=== PATIENT | female | born 1950 | race African-American/Black ===

== ENCOUNTER 2019-09-30 19:11 | Inpatient (IN) ==
[2019-09-30] MEDS ORDERED: PANTOPRAZOLE 40 MG VIAL IV STA (19:59)
[2019-09-30] MEDS ORDERED: SODIUM CHLORIDE 0.9% 500 ML IV STA (19:59)
[2019-09-30] MEDS ORDERED: ONDANSETRON 4 MG/2 ML VIAL IV STA (19:59)
[2019-09-30 20:14] LABS: Basophils # 0.1 10*3/uL (0.0-0.2); Basophils % 0.9 % (0.0-0.8); Eosinophils % 0.5 % (0.00-10.9); Hematocrit 39.1 VOL% (35.7-47.0); Hemoglobin 12.1 GM/DL (12.0-16.0); Immature Granulocytes % 0.2 %; Immature Granulocytes Absolute 0.02 #; Lymphocytes # 1.5 10*3/uL (1.4-4.0); Lymphocytes % 18.7 % (21.3-54.2); Mean Corpuscular HGB Conc 30.9 GM/DL (32-36); Mean Corpuscular Volume 79.1 FL (87-102); Mean Platelet Volume 10.5 FL (9.6-12.0); Monocytes % 6.7 % (1.7-12.7); Platelet Count 348 T/CUMM (130-400); Red Blood Count 4.94 MC/CUMM (3.8-5.5); Red Cell Distribution Width 15.3 % (9.3-17.3); White Blood Count 8.1 T/CUMM (4-12)
[2019-09-30 20:40] LABS: Alanine Aminotransferase 24 U/L (13-56); Albumin 3.7 G/DL (3.4-5.0); Alkaline Phosphatase 78 U/L (45-117); Amylase 95 U/L (25-115); Aspartate Amino Transferase 21 U/L (0-37); Blood Urea Nitrogen 16 MG/DL (7-18); Calcium 9.4 MG/DL (8.5-10.1); Estimated Glom Filtration Rate 64 ML/MIN; Glucose 178 MG/DL (74-106); Osmolality,Calculated 279.7 MOS/KG (273-304); Total Protein 6.7 G/DL (6.4-8.3)
[2019-09-30] MEDS ORDERED: NICOTINE 21 MG/24 HR PATCH TRANSDERM PRN (21:26)
[2019-09-30] MEDS ORDERED: MORPHINE 4 MG/1 ML VIAL IV PRN (21:26)
[2019-09-30] MEDS ORDERED: PROMETHAZINE 25 MG/1 ML VIAL IM PRN (21:26)
[2019-09-30] MEDS ORDERED: ONDANSETRON 4 MG/2 ML VIAL IV PRN (21:26)
[2019-09-30] MEDS ORDERED: DEXTROSE 10% 250 ML IV ONE (22:53)
[2019-09-30] MEDS ORDERED: DEXTROSE 10% 250 ML BAG IV PRN (22:59)
[2019-09-30] MEDS: SODIUM CHLORIDE 0.9% 1,000 ML IV SCH (23:19)
[2019-10-01 05:27] LABS: Basophils # 0.1 10*3/uL (0.0-0.2); Basophils % 0.8 % (0.0-0.8); Eosinophils # 0.1 10*3/uL (0.0-0.87); Eosinophils % 1.2 % (0.00-10.9); Hematocrit 28.4 VOL% (35.7-47.0); Hemoglobin 8.8 GM/DL (12.0-16.0); Immature Granulocytes % 0.4 %; Immature Granulocytes Absolute 0.03 #; Lymphocytes # 2.6 10*3/uL (1.4-4.0); Lymphocytes % 35.7 % (21.3-54.2); Mean Corpuscular Volume 79.3 FL (87-102); Mean Platelet Volume 10.4 FL (9.6-12.0); Monocytes % 8.7 % (1.7-12.7); Neutrophils % 53.2 % (38.7-73.9); Platelet Count 243 T/CUMM (130-400); Red Blood Count 3.58 MC/CUMM (3.8-5.5); Red Cell Distribution Width 15.2 % (9.3-17.3); White Blood Count 7.3 T/CUMM (4-12)
[2019-10-01] MEDS: PANTOPRAZOLE 40 MG VIAL IV SCH ×2 (09:28→21:25)
[2019-10-01 10:58] LABS: Apearance,Urine Slightly Hazy (Clear); Bilirubin,Urine Negative (Negative); Blood, Urine Large mg/dL (Negative); Glucose,Urine (UA) Negative (Negative); Ketones,Urine Negative (Negative); Nitrite,Urine Negative (Negative); Protein,Urine Negative; RBC,Urine 1 /HPF (0-4); Urine Color Yellow (Yellow); Urine Specific Gravity 1.011 (1.001-1.035); Urine Urobilinogen < 2.0 EU/DL (0.2-1.0); WBC,Urine 9 /HPF (0-6)
[2019-10-01 10:59] LABS: Bacteria,Urine Occasional /HPF (Few); Mucus,Urine Occasional /LPF (Occasional); Squamous Epithelial Cell,Urine Few /HPF (0-10)
[2019-10-01] MEDS ORDERED: GLUCAGON 1 MG VIAL IM PRN ×2 (14:44→14:48)
[2019-10-01] MEDS ORDERED: DEXTROSE 10% 250 ML BAG IV PRN (14:44)
[2019-10-01] MEDS ORDERED: DEXTROSE 50% 25 GM/50 ML VIAL IV PRN (14:48)
[2019-10-01] MEDS ORDERED: PANTOPRAZOLE 40 MG TABLET PO PRN (14:56)
[2019-10-01] MEDS: cefTRIAXone 1,000 MG in SYRINGE 1 EACH IV SCH (16:05)
[2019-10-01] MEDS: SODIUM CHLORIDE 0.9% 1,000 ML IV SCH ×2 (17:13→17:14)
[2019-10-01] MEDS ORDERED: INSULIN REGULAR 100 UNIT/ML SUBCUT SCH (18:00)
[2019-10-01] MEDS ORDERED: POLYETHYLENE GLYCOL POWDER 255 GM BOTTLE PO ONE (18:00)
[2019-10-01] MEDS: INSULIN REGULAR 100 UNIT/ML SUBCUT SCH (18:07)
[2019-10-01 20:57] LABS: Hematocrit 25.4 VOL% (35.7-47.0); Hemoglobin 7.7 GM/DL (12.0-16.0)
[2019-10-01] MEDS ORDERED: MAGNESIUM CITRATE 300 ML BOTTLE PO ONE (21:00)
[2019-10-02] MEDS: SODIUM CHLORIDE 0.9% 1,000 ML IV SCH ×4 (01:14→20:33)
[2019-10-02 01:43] LABS: Hematocrit 22.3 VOL% (35.7-47.0); Hemoglobin 6.7 GM/DL (12.0-16.0)
[2019-10-02] MEDS: INSULIN REGULAR 100 UNIT/ML SUBCUT SCH ×4 (02:00→18:16)
[2019-10-02 02:03] LABS: Calcium 7.7 MG/DL (8.5-10.1)
[2019-10-02 02:05] LABS: Risk Ratio 3.27; VLDL CHOLESTEROL 24.6 MG/DL
[2019-10-02] MEDS ORDERED: SODIUM CHLORIDE 0.9% 1,000 ML IV PRN (02:06)
[2019-10-02] MEDS ORDERED: LACTATED RINGERS 1,000 ML IV SCH (08:30)
[2019-10-02] MEDS: cefTRIAXone 1,000 MG in SYRINGE 1 EACH IV SCH (09:12)
[2019-10-02] MEDS: ATORVASTATIN 10 MG TABLET PO SCH (09:12)
[2019-10-02 09:35] LABS: Basophils % 0.4 % (0.0-0.8); Eosinophils # 0.1 10*3/uL (0.0-0.87); Eosinophils % 1.6 % (0.00-10.9); Hematocrit 25.1 VOL% (35.7-47.0); Hemoglobin 7.8 GM/DL (12.0-16.0); Immature Granulocytes % 0.5 %; Immature Granulocytes Absolute 0.04 #; Lymphocytes # 2.4 10*3/uL (1.4-4.0); Lymphocytes % 31.2 % (21.3-54.2); Mean Corpuscular HGB Conc 31.1 GM/DL (32-36); Mean Platelet Volume 10.2 FL (9.6-12.0); Monocytes % 7.5 % (1.7-12.7); Neutrophils % 58.8 % (38.7-73.9); Platelet Count 199 T/CUMM (130-400); Red Blood Count 3.06 MC/CUMM (3.8-5.5); Red Cell Distribution Width 15.4 % (9.3-17.3); White Blood Count 7.7 T/CUMM (4-12)
[2019-10-02] MEDS ORDERED: LIDOCAINE 2% 5 ML VIAL ONE (11:00)
[2019-10-02] MEDS ORDERED: propofoL 200 MG/20 ML VIAL IV ONE (11:00)
[2019-10-02 14:34] LABS: Hematocrit 25.6 VOL% (35.7-47.0); Hemoglobin 8.2 GM/DL (12.0-16.0)
[2019-10-02] MEDS: PANTOPRAZOLE 40 MG TABLET PO SCH (16:58)
[2019-10-02 20:20] LABS: Hematocrit 24.9 VOL% (35.7-47.0)
[2019-10-02] MEDS: hydrALAZINE 25 MG TABLET PO SCH (20:33)
[2019-10-03] MEDS: INSULIN REGULAR 100 UNIT/ML SUBCUT SCH ×4 (00:39→19:03)
[2019-10-03] MEDS: SODIUM CHLORIDE 0.9% 1,000 ML IV SCH ×2 (05:13→16:16)
[2019-10-03 05:56] LABS: Basophils % 0.5 % (0.0-0.8); Eosinophils # 0.2 10*3/uL (0.0-0.87); Eosinophils % 2.6 % (0.00-10.9); Hemoglobin 7.7 GM/DL (12.0-16.0); Immature Granulocytes % 0.5 %; Immature Granulocytes Absolute 0.04 #; Lymphocytes # 2.6 10*3/uL (1.4-4.0); Lymphocytes % 31.2 % (21.3-54.2); Mean Corpuscular HGB Conc 32.1 GM/DL (32-36); Mean Corpuscular Volume 81.1 FL (87-102); Mean Platelet Volume 10.3 FL (9.6-12.0); Monocytes % 7.9 % (1.7-12.7); Neutrophils % 57.3 % (38.7-73.9); Platelet Count 186 T/CUMM (130-400); Red Blood Count 2.96 MC/CUMM (3.8-5.5); Red Cell Distribution Width 15.8 % (9.3-17.3); White Blood Count 8.2 T/CUMM (4-12)
[2019-10-03 06:13] LABS: Calcium 8.2 MG/DL (8.5-10.1)
[2019-10-03] MEDS ORDERED: FUROSEMIDE 20 MG/2 ML VIAL IV PRN (06:51)
[2019-10-03] MEDS ORDERED: SODIUM CHLORIDE 0.9% 1,000 ML IV PRN (06:51)
[2019-10-03 10:04] LABS: Hematocrit 25.4 VOL% (35.7-47.0); Hemoglobin 8.1 GM/DL (12.0-16.0)
[2019-10-03] MEDS: cefTRIAXone 1,000 MG in SYRINGE 1 EACH IV SCH (10:35)
[2019-10-03] MEDS: ATORVASTATIN 10 MG TABLET PO SCH (10:36)
[2019-10-03] MEDS: hydrALAZINE 25 MG TABLET PO SCH ×2 (10:36→21:20)
[2019-10-03] MEDS: POLYETHYLENE GLYCOL POWDER 17 GM PACK PO SCH ×3 (10:36→21:20)
[2019-10-03] MEDS: PANTOPRAZOLE 40 MG TABLET PO SCH (16:15)
[2019-10-04] MEDS: SODIUM CHLORIDE 0.9% 1,000 ML IV SCH ×2 (00:20→09:20)
[2019-10-04] MEDS: INSULIN REGULAR 100 UNIT/ML SUBCUT SCH ×2 (00:45→06:15)
[2019-10-04 05:44] LABS: Basophils # 0.1 10*3/uL (0.0-0.2); Basophils % 0.9 % (0.0-0.8); Eosinophils # 0.4 10*3/uL (0.0-0.87); Eosinophils % 4.2 % (0.00-10.9); Hematocrit 32.9 VOL% (35.7-47.0); Hemoglobin 10.8 GM/DL (12.0-16.0); Immature Granulocytes % 0.6 %; Immature Granulocytes Absolute 0.05 #; Lymphocytes # 2.3 10*3/uL (1.4-4.0); Lymphocytes % 26.8 % (21.3-54.2); Mean Corpuscular HGB Conc 32.8 GM/DL (32-36); Mean Corpuscular Volume 83.9 FL (87-102); Monocytes % 8.7 % (1.7-12.7); Neutrophils % 58.8 % (38.7-73.9); Platelet Count 207 T/CUMM (130-400); Red Blood Count 3.92 MC/CUMM (3.8-5.5); Red Cell Distribution Width 15.8 % (9.3-17.3); White Blood Count 8.5 T/CUMM (4-12)
[2019-10-04 07:45] VITALS: BP 134/60
[2019-10-04] MEDS: POLYETHYLENE GLYCOL POWDER 17 GM PACK PO SCH (09:21)
[2019-10-04] MEDS: cefTRIAXone 1,000 MG in SYRINGE 1 EACH IV SCH (09:21)
[2019-10-04] MEDS: ATORVASTATIN 10 MG TABLET PO SCH (09:21)
[2019-10-04] MEDS: hydrALAZINE 25 MG TABLET PO SCH (09:22)
== END 2019-10-04 10:58 | disposition home or self-care (01) | DRG 378 ==
LOC: N.ED 19:11 → N.EDINP 21:16 → N.2E 22:25
PROVIDERS: ADMIT Internal Medicine; ATTEND Internal Medicine